=== PATIENT | male | born 1970 | race Caucasian/White ===

== ENCOUNTER 2020-10-19 18:53 | Observation (INO) ==
[2020-10-19] MEDS ORDERED: Albuterol 0.5% CONC CONTINUOUS NEB.SOL 5 mg/ml 20 ml BOT INH ONE (19:03)
[2020-10-19] MEDS ORDERED: methylPREDNISolone 125 mg 2 ML VIAL IV ONE (19:04)
[2020-10-19] MEDS ORDERED: Famotidine IV 10 MG/ML 2 ml VIAL (20 mg) IV SLOW PU ONE (19:04)
[2020-10-19] MEDS ORDERED: Ondansetron 4 mg VIAL 2 MG/ML 2 ml VIAL IV ONE (19:04)
[2020-10-19] MEDS ORDERED: diPHENhydraMINE IV 50 MG/ML 1 ml VIAL (BENADRYL) SLOW PUSH ONE (19:04)
[2020-10-19] MEDS ORDERED: methylPREDNISolone 125 mg 2 ML VIAL ONE (19:06)
[2020-10-19] MEDS ORDERED: Ondansetron 4 mg VIAL 2 MG/ML 2 ml VIAL ONE (19:06)
[2020-10-19] MEDS ORDERED: diPHENhydraMINE IV 50 MG/ML 1 ml VIAL (BENADRYL) ONE (19:06)
[2020-10-19 19:28] LABS: ABS Eosinophils 0.1 10^3/ul (0-0.6); ABS Lymphocytes 3.9 10^3/ul (1.0-4.8); ABS Monocytes 0.4 10^3/ul (0-0.8); ABS Neutrophils 3.1 10^3/ul (1.5-7.7); Eosinophil % 1.5 %; Hematocrit 45 % (42-52); Hemoglobin 15.4 g/dL (14.0-18.0); Lymphocyte % 51.4 %; Mean Corpuscular HGB Conc 34 g/dL (31-36); Mean Corpuscular Hemoglobin 33 pg (27-31); Mean Corpuscular Volume 96 fL (80-94); Mean Platelet Volume 8.3 fL (7.4-10.4); Nucleated Red Blood Cells % 0.1; Platelet Count 256 10^3/uL (150-450); Red Blood Count 4.71 10^6 /uL (4.18-5.48); Red Cell Distribution Width 13 % (10-15); White Blood Count 7.6 10^3/uL (3.5-10.8)
[2020-10-19 19:45] LABS: Albumin 4.3 g/dL (3.2-5.2); Albumin/Globulin Ratio 1.7 (1-3); EGFR African American 93.3 (>60); EGFR Non-African American 77.1 (>60); Globulin 2.5 g/dL (2-4); Potassium 3.3 mmol/L (3.5-5.0); Total Bilirubin 0.5 mg/dL (0.2-1.0); Total Protein 6.8 g/dL (6.4-8.9)
[2020-10-19] MEDS ORDERED: diPHENhydraMINE IV 50 MG/ML 1 ml VIAL (BENADRYL) IV PRN (21:12)
[2020-10-19] MEDS ORDERED: Albuterol 2.5mg/3 ml (0.083%) NEB.SOLN INH PRN (21:14)
[2020-10-19] MEDS ORDERED: Calamine/Pramoxine LOTION 8%/1% 180 ML TOPICAL PRN (21:14)
[2020-10-19] MEDS ORDERED: Potassium Chlor 20 meq TAB.ER PO ONE (21:17)
[2020-10-19] MEDS ORDERED: Ondansetron 4 mg VIAL 2 MG/ML 2 ml VIAL IV PRN (21:17)
[2020-10-19] MEDS ORDERED: Albuterol HFA INHALER 8 gm MDI INH PRN (21:21)
[2020-10-20 06:50] LABS: ABS Lymphocytes 0.4 10^3/ul (1.0-4.8); ABS Monocytes 0.1 10^3/ul (0-0.8); ABS Neutrophils 7.2 10^3/ul (1.5-7.7); Hematocrit 44 % (42-52); Hemoglobin 14.9 g/dL (14.0-18.0); Lymphocyte % 5.7 %; Mean Corpuscular HGB Conc 34 g/dL (31-36); Mean Corpuscular Hemoglobin 33 pg (27-31); Mean Corpuscular Volume 97 fL (80-94); Mean Platelet Volume 8.8 fL (7.4-10.4); Platelet Count 209 10^3/uL (150-450); Red Blood Count 4.49 10^6 /uL (4.18-5.48); Red Cell Distribution Width 13 % (10-15); White Blood Count 7.8 10^3/uL (3.5-10.8)
[2020-10-20 07:01] LABS: Calcium 8.8 mg/dL (8.6-10.3); EGFR African American 124.8 (>60); EGFR Non-African American 103.2 (>60); Potassium 4.3 mmol/L (3.5-5.0)
[2020-10-20] MEDS ORDERED: Fluticasone NASAL SPRAY 50MCG 16 gm SPRAY BTL INTRANASAL SCH (09:00)
[2020-10-20] MEDS ORDERED: methylPREDNISolone 125 mg 2 ML VIAL IV ONE (09:00)
[2020-10-20] MEDS ORDERED: Mometasone/Formoter 200/5 MDI INH SCH (09:00)
[2020-10-20 13:15] VITALS: BP 123/76
== END 2020-10-20 12:40 | disposition home or self-care (01) ==
LOC: MEDTELE 18:53 → ED 18:53 → SUATTDRO 21:12 → MEDTELE 21:58
PROVIDERS: ADMIT Internal Medicine; ATTEND Internal Medicine